=== PATIENT | male | born 1975 | race Native Hawaiian/Other Pacific Islander ===

== ENCOUNTER 2016-12-26 23:07 | Observation (INO) | payer SELFPAY ==
[2016-12-26] MEDS ORDERED: Sodium Chloride 0.9% 1,000 ML IV ONE (23:41)
[2016-12-26] MEDS ORDERED: Sodium Chloride 0.9% 1,000 ML ONE (23:55)
[2016-12-26 23:59] LABS: BASO # 0.1 K/uL (0.0-0.2); BASO % 0.7 % (0.0-2.0); EOS # 0.3 K/uL (0.0-0.7); EOS % 1.9 % (0.0-4.0); HEMATOCRIT 50.2 % (35.0-51.0); LYMPH # 2.3 K/uL (1.0-4.3); LYMPH % 14.2 % (20.0-40.0); MEAN CELL VOLUME 86.9 fL (80.0-94.0); MEAN CORPUSCULAR HEMOGLOBIN 29.2 pg (27.0-31.0); MEAN CORPUSCULAR HGB CONC 33.6 g/dL (33.0-37.0); MEAN PLATELET VOLUME 9.6 fL (7.2-11.7); MONO # 1.1 K/uL (0.0-0.8); MONO % 6.8 % (0.0-10.0); WHITE BLOOD COUNT 15.9 K/uL (4.8-10.8)
[2016-12-27 00:04] LABS: RBC URINE 1 /hpf (0-3); URINE BILIRUBIN NEGATIVE (NEGATIVE); URINE BLOOD NEGATIVE (NEGATIVE); URINE COLOR Yellow (YELLOW); URINE GLUCOSE (UA) 3+ mg/dL (Normal); URINE KETONE TRACE mg/dL (NEGATIVE); URINE LEUKOCYTE ESTERASE NEG Leu/uL (Negative); URINE PROTEIN NEGATIVE (NEGATIVE); URINE UROBILINOGEN NORMAL mg/dL (0.2-1.0); WBC URINE < 1 /hpf (0-5)
[2016-12-27 00:08] LABS: INR 1.1
[2016-12-27 00:09] LABS: CHLORIDE 98 mmol/L (98-107); SODIUM 136 mmol/L (132-148)
[2016-12-27 00:10] LABS: POTASSIUM 3.7 mmol/L (3.6-5.2)
[2016-12-27 00:12] LABS: ALB/GLOB RATIO 1.5 (1.0-2.1); ALKALINE PHOSPHATASE 90 U/L (38-126); AST/SGOT 15 U/L (17-59); BILIRUBIN,TOTAL 1.2 mg/dL (0.2-1.3); BLOOD UREA NITROGEN 12 mg/dL (9-20); CARBON DIOXIDE 26 mmol/L (22-30); GFR AFRICAN-AMERICAN > 60; TOTAL PROTEIN 7.4 g/dL (6.3-8.3)
[2016-12-27 00:13] LABS: ALT/SGPT 41 U/L (21-72); CALCIUM 9.3 mg/dl (8.6-10.4); GLUCOSE,RANDOM 178 mg/dL (75-110)
--- NOTE | 2016-12-27 00:13 | C.PDOC ---
Time Seen by Provider: 12/26/16 23:27 Chief Complaint (Nursing): Abdominal Pain History Per: Patient Onset/Duration Of Symptoms: Hrs (since this morning) Current Symptoms Are (Timing): Still Present Location Of Pain/Discomfort: Diffuse, RLQ Quality Of Discomfort: "Pain" Associated Symptoms: Nausea, Vomiting Alleviating Factors: None Last Bowel Movement: Today Additional History Per: Prior Records Past Medical History Reviewed: Historical Data, Nursing Documentation, Vital Signs Vital Signs: Last Vital Signs Temp 98.6 F 12/26/16 23:13 Pulse 66 12/26/16 23:13 Resp 16 12/26/16 23:13 BP 127/75 12/26/16 23:13 Pulse Ox 98 12/27/16 00:13 - Medical History PMH: Diabetes Surgical History: No Surg Hx Family History: States: Unknown Family Hx - Social History Hx Alcohol Use: Yes Hx Substance Use: No - Immunization History Hx Tetanus Toxoid Vaccination: No Hx Influenza Vaccination: No Hx Pneumococcal Vaccination: No Review Of Systems Except As Marked, All Systems Reviewed And Found Negative. Constitutional: Negative for: Weakness Cardiovascular: Negative for: Chest Pain Respiratory: Negative for: Shortness of Breath Gastrointestinal: Positive for: Nausea, Vomiting, Abdominal Pain. Negative for : Hematemesis Genitourinary: Negative for: Dysuria, Scrotal Pain Musculoskeletal: Negative for: Neck Pain, Back Pain Skin: Negative for: Rash Neurological: Negative for: Weakness, Numbness Physical Exam - Physical Exam Appears: Other (Uncomfortable) Skin: Normal Color, Warm, Dry, No Rash Head: Atraumatic, Normacephalic Eye(s): bilateral: PERRL, EOMI Neck: Normal ROM, Supple Cardiovascular: Rhythm Regular Respiratory: Normal Breath Sounds, No Accessory Muscle Use Gastrointestinal/Abdominal: Tenderness (RLQ) Back: No CVA Tenderness Extremity: Normal ROM Neurological/Psych: Oriented x3, Normal Motor, Normal Sensation ED Course And Treatment - Laboratory Results Result Diagrams: 12/26/16 23:56 12/26/16 23:56 Lab Interpretation: Abnormal Interpretation Of Abnormal: Leukocytosis O2 Sat by Pulse Oximetry: 98 Pulse Ox Interpretation: Normal Disposition - Disposition Disposition Time: 00:48 Condition: FAIR - Clinical Impression Clinical Impression: Abdominal pain Physician Patient Turnover Patient Signed Over To: Charles Reis Handoff Comments: to f/up CT scan of abd/pelv.
[2016-12-27] MEDS ORDERED: Iohexol 350mg/ml 100 ML ONE (00:26)
[2016-12-27] MEDS ORDERED: Piperacillin/Tazobact 3.375 gm 100 ML IVPB STA (00:58)
[2016-12-27] MEDS ORDERED: Piperacillin/Tazobact 3.375 gm 100 ML IVPB ONE (01:25)
--- NOTE | 2016-12-27 01:46 | CT ---
EXAM: CT Abdomen and Pelvis With Intravenous Contrast CLINICAL HISTORY: 41 years old, male; Pain; Abdominal pain; Additional info: Abd pain, R/O appendicitis TECHNIQUE: Axial computed tomography images of the abdomen and pelvis with intravenous contrast. All CT scans at this facility use one or more dose reduction techniques, viz.: automated exposure control; ma/kV adjustment per patient size (including targeted exams where dose is matched to indication; i.e. head); or iterative reconstruction technique. Coronal and sagittal reformatted images were created and reviewed. CONTRAST: 100 mL of [id number] administered intravenously. COMPARISON: No relevant prior studies available. FINDINGS: Lower thorax: Minimal atelectasis. ABDOMEN: Liver: Probable mild fatty infiltration. Gallbladder and bile ducts: No calcified stones. No ductal dilation. Pancreas: No ductal dilation. No mass. Spleen: No splenomegaly. Adrenals: No mass. Kidneys and ureters: No mass. No hydronephrosis. Stomach and bowel: No definite mural thickening. No obstruction. Appendix: Enlarged appendix, measuring up to 1.2 cm in diameter. Mild stranding about appendix. Appendicolith. PELVIS: Bladder: Unremarkable. Reproductive: Unremarkable as visualized. ABDOMEN and PELVIS: Intraperitoneal space: No significant fluid collection. No free air. Bones/joints: Degenerative changes of lower lumbar spine. No acute fracture. Soft tissues: Mild gynecomastia. Vasculature: Unremarkable. No aneurysm. Lymph nodes: No pathologically enlarged lymph nodes. IMPRESSION: 1. Acute appendicitis. 2. Incidental/non-acute findings are described above.
[2016-12-27] MEDS: Sodium Chloride 0.9% 1,000 ML IV SCH ×3 (02:40→22:12)
--- NOTE | 2016-12-27 02:52 | CP.PCM.HP ---
History of Present Illness - History of Present Illness History of Present Illness: Surgery 41M with PMH of DM came with RLQ pain started yesterday. Pain is localized, doesn't radiate. Sudden onset of pain. Report N/V multiple times. Non bilious, non bloody. Denies hematochezia/hematemesis/hematuria/dysuria/F/C/D/CP/SOB. WBC 17k. CT shows acute appendicitis with appendicholith. Pt consented for surgery. PMH: DM on Metformin PSH: None Med: Metformin SS: Lives with family Present on Admission - Present on Admission Any Indicators Present on Admission: No Review of Systems - Review of Systems Review of Systems: see HPI Past Patient History - Infectious Disease Hx of Infectious Diseases: None - Past Social History Smoking Status: Never Smoked - CARDIAC Hx Cardiac Disorders: No - PULMONARY Hx Respiratory Disorders: No - NEUROLOGICAL Hx Neurological Disorder: No - HEENT Hx HEENT Problems: No - RENAL Hx Chronic Kidney Disease: No - ENDOCRINE/METABOLIC Hx Endocrine Disorders: Yes Hx Diabetes Mellitus Type 2: Yes - HEMATOLOGICAL/ONCOLOGICAL Hx Blood Disorders: No - INTEGUMENTARY Hx Dermatological Problems: No - MUSCULOSKELETAL/RHEUMATOLOGICAL Hx Musculoskeletal Disorders: No - GASTROINTESTINAL Hx Gastrointestinal Disorders: Yes Hx Gastroesophageal Reflux: Yes - GENITOURINARY/GYNECOLOGICAL Hx Genitourinary Disorders: No - PSYCHIATRIC Hx Substance Use: No - SURGICAL HISTORY Hx Surgeries: No - ANESTHESIA Hx Anesthesia: No Meds Allergies/Adverse Reactions: Allergies Allergy/AdvReac Type Severity Reaction Status Date / Time No Known Allergies Allergy Verified 12/26/16 23:16 Physical Exam - Constitutional Appears: Non-toxic - Head Exam Head Exam: ATRAUMATIC, NORMAL INSPECTION, NORMOCEPHALIC - Eye Exam Eye Exam: EOMI, Normal appearance, PERRL Pupil Exam: NORMAL ACCOMODATION, PERRL - ENT Exam ENT Exam: Mucous Membranes Moist, Normal Exam - Neck Exam Neck exam: Positive for: Normal Inspection - Respiratory Exam Respiratory Exam: Clear to Auscultation Bilateral, NORMAL BREATHING PATTERN - Cardiovascular Exam Cardiovascular Exam: REGULAR RHYTHM - GI/Abdominal Exam GI & Abdominal Exam: Guarding, Rebound, Soft, Tenderness. absent: Distended, Firm, Hernia, Mass, Organomegaly, Pulsatile Mass Additional comments: RLQ TTP - Extremities Exam Extremities exam: Positive for: full ROM, normal inspection - Back Exam Back exam: NORMAL INSPECTION - Neurological Exam Neurological exam: Alert, CN II-XII Intact, Normal Gait, Oriented x3, Reflexes Normal - Psychiatric Exam Psychiatric exam: Normal Affect, Normal Mood - Skin Skin Exam: Dry, Intact, Normal Color, Warm Results - Vital Signs Recent Vital Signs: Last Vital Signs Temp 98.3 F 12/27/16 02:43 Pulse 76 12/27/16 02:43 Resp 20 12/27/16 02:43 BP 107/60 12/27/16 02:43 Pulse Ox 96 12/27/16 02:43 - Labs Result Diagrams: 12/26/16 23:56 12/26/16 23:56 Labs: Laboratory Results - last 24 hr 12/26/16 12/26/16 12/26/16 23:56 23:56 23:56 WBC 15.9 H RBC 5.77 Hgb 16.8 Hct 50.2 MCV 86.9 MCH 29.2 MCHC 33.6 RDW 13.0 Plt Count 268 MPV 9.6 Neut % (Auto) 76.4 H Lymph % (Auto) 14.2 L [place] % (Auto) 6.8 Eos % (Auto) 1.9 Baso % (Auto) 0.7 Neut # 12.2 H Lymph # 2.3 [place] # 1.1 H Eos # 0.3 Baso # 0.1 PT 12.1 INR 1.1 APTT 33 Sodium Potassium Chloride Carbon Dioxide Anion Gap BUN Creatinine Est GFR ( Amer) Est GFR (Non-Af Amer) Random Glucose Calcium Total Bilirubin AST ALT Alkaline Phosphatase Total Protein Albumin Globulin Albumin/Globulin Ratio Lipase Urine Color Yellow Urine Clarity Clear Urine pH 5.0 Ur Specific [place] 1.022 Urine Protein Negative Urine Glucose (UA) 3+ H Urine Ketones Trace Urine Blood Negative Urine Nitrate Negative Urine Bilirubin Negative Urine Urobilinogen Normal Ur Leukocyte Esterase Neg Urine WBC (Auto) < 1 Urine RBC (Auto) 1 Ur Squamous Epith Cells < 1 12/26/16 23:56 WBC RBC Hgb Hct MCV MCH MCHC RDW Plt Count MPV Neut % (Auto) Lymph % (Auto) [place] % (Auto) Eos % (Auto) Baso % (Auto) Neut # Lymph # [place] # Eos # Baso # PT INR APTT Sodium 136 Potassium 3.7 Chloride 98 Carbon Dioxide 26 Anion Gap 16 BUN 12 Creatinine 0.7 L Est GFR ( Amer) > 60 Est GFR (Non-Af Amer) > 60 Random Glucose 178 H Calcium 9.3 Total Bilirubin 1.2 AST 15 L ALT 41 Alkaline Phosphatase 90 Total Protein 7.4 Albumin 4.4 Globulin 3.0 Albumin/Globulin Ratio 1.5 Lipase 49 Urine Color Urine Clarity Urine pH Ur Specific [place] Urine Protein Urine Glucose (UA) Urine Ketones Urine Blood Urine Nitrate Urine Bilirubin Urine Urobilinogen Ur Leukocyte Esterase Urine WBC (Auto) Urine RBC (Auto) Ur Squamous Epith Cells Assessment & Plan - Assessment and Plan (Free Text) Assessment: Acute appendicitis CT acute appendicitis with stone WBC 17k Afebrile -OR at 11AM for lap appy -NPO -IVF -ABX -PTX -SCD DW Dr. Howell
[2016-12-27] MEDS: HYDROmorphone 0.5 mg/0.5 ml ISec IVP PRN ×6 (05:30→13:23)
[2016-12-27] MEDS ORDERED: HYDROmorphone 0.5 mg/0.5 ml ISec IVP STA (07:04)
[2016-12-27] MEDS: Piperacillin/Tazobact 3.375 GM in Sodium Chloride 100 ML IVPB SCH ×3 (09:18→23:44)
[2016-12-27] MEDS ORDERED: Propofol 10 mg/ml Inj (20 ML) ONE (10:59)
[2016-12-27] MEDS ORDERED: Midazolam 2 MG/2 ML VIAL ONE (10:59)
[2016-12-27] MEDS ORDERED: Bupivacaine 0.5%/Epi 1:200,000 (10 ML SOL) ONE (11:01)
[2016-12-27] MEDS ORDERED: Lactated Ringer's 1,000 ML IV ONE (11:02)
[2016-12-27] MEDS ORDERED: ePHEDrine 50 mg/ml Inj ONE (11:22)
[2016-12-27] MEDS ORDERED: Phenylephrine 10 mg/ml Inj ONE (11:22)
--- NOTE | 2016-12-27 12:10 | PCM.SURG1 ---
Surgeon's Initial Post Op Note - Surgeon's Notes Surgeon: Dr. Howell Repossession Agent: Dr. Demarco PGY-2, Jackie Ramirez OMS III Pre-Operative Diagnosis: Appendicitis, acute Operative Findings: Acute appendicitis Post-Operative Diagnosis: Acute appendicitis Operation Performed: laparoscopic appendectomy Specimen/Specimens Removed: appendix Estimated Blood Loss: EBL {In ML}: 5 Date of Surgery/Procedure: 12/27/16 Time of Surgery/Procedure: 11:00
[2016-12-27] MEDS: Oxycodone/Acetaminophen 5/325 mg Tab PO PRN ×2 (14:17→23:42)
[2016-12-27 14:24] VITALS: RESP 20
--- NOTE | 2016-12-27 22:59 | OP ---
PROCEDURE DATE: 12/27/2016 PREOPERATIVE DIAGNOSIS: Acute appendicitis. POSTOPERATIVE DIAGNOSIS: Acute appendicitis. PROCEDURE PERFORMED: Laparoscopic appendectomy. SURGEON: Dr. Howell. ADMINISTRATIVE FELLOW: Bob. FINDINGS: The appendix was retrocecal; it was markedly inflamed, swollen, but no gross perforation was noted. Some fibrinous purulent exudate located around the area and a small amount of murky greenish fluid in the right gutter. No other pathology noted. PROCEDURE IN DETAIL: Under general anesthesia, the patient was prepared and draped in the sterile fashion. A 12-mm trocar was inserted in the umbilicus after inflating the abdomen with CO2 to 15 mmHg pressure. A laparoscope was inserted; then, under direct vision, a 5-mm suprapubic port and a 5-mm left lower quadrant ports were inserted. The patient was put in Trendelenburg position, turned over towards the left side. The appendix was buried in adhesions. The adhesions were taken down. The appendix was then grasped with a grasper. Traction was applied. It was mobilized. The base was identified. It was transected with the Endo DOLORES with blue valeriy and then mesoappendix was also treated in a similar with the white valeriy. Area was irrigated with copious amount of saline solution. The appendix initially was placed in the EndoCatch, then was extracted through the umbilical port. Area was further irrigated. Irrigating fluid was suctioned out. CO2 allowed to escape from the peritoneal cavity. Trocars removed, the wounds closed in a routine fashion. The estimated blood loss was about 5 mL. No complications. Quintin Howell MD
--- NOTE | 2016-12-28 03:34 | CP.PCM.PN ---
Subjective - Date & Time of Evaluation Date of Evaluation: 12/28/16 Time of Evaluation: 06:10 - Subjective Subjective: Patient seen and examined at bedside. Patient reports pain not fully controlled with pain medication, denies nausea, vomiting, fevers, chills. Is tolerating carb controlled diet and urinating well. Objective - Vital Signs/Intake and Output Vital Signs (last 24 hours): Temp Pulse Resp BP Pulse Ox 98.9 F 104 H 20 129/73 98 12/27/16 23:34 12/27/16 23:34 12/27/16 23:34 12/27/16 23:34 12/27/16 23:34 - Medications Medications: Current Medications Acetaminophen (Tylenol 325mg Tab) 975 mg PO Q6 PRN PRN Reason: Fever >100.4 F Heparin Sodium (Porcine) (Heparin) 5,000 units SC Q12 [facility] Hydromorphone HCl (Dilaudid) 0.5 mg IVP Q4H PRN PRN Reason: Pain, severe (8-10) Last Admin: 12/27/16 16:40 Dose: 0.5 mg Piperacillin Sod/Tazobactam (Sod 3.375 gm/ Sodium Chloride) 100 mls @ 200 mls/ hr IVPB Q8H [facility] Last Admin: 12/27/16 23:44 Dose: 200 mls/hr Sodium Chloride (Sodium Chloride 0.9%) 1,000 mls @ 100 mls/hr IV .Q10H [facility] Stop: 12/30/16 02:16 Last Admin: 12/27/16 22:12 Dose: 100 mls/hr Metformin HCl (Glucophage Xr) 750 mg PO DAILY [facility] Ondansetron HCl (Zofran Inj) 4 mg IVP Q4 PRN PRN Reason: Nausea/Vomiting Last Admin: 12/27/16 16:30 Dose: 4 mg Oxycodone/Acetaminophen (Percocet 5/325 Mg Tab) 1 tab PO Q6H PRN PRN Reason: Pain, moderate (4-7) Stop: 12/30/16 12:28 Last Admin: 12/27/16 23:42 Dose: 1 tab Pantoprazole Sodium (Protonix Inj) 40 mg IVP DAILY [facility] Pneumococcal Polyvalent Vaccine (Pneumovax 23 Vaccine) 0.5 ml IM .ONCE ONE Stop: 12/30/16 10:01 - Labs Labs: PT 12.1 SECONDS (9.7-12.2) 12/26/16 23:56 INR 1.1 12/26/16 23:56 APTT 33 SECONDS (21-34) 12/26/16 23:56 - Constitutional Appears: Non-toxic, No Acute Distress - Head Exam Head Exam: ATRAUMATIC, NORMOCEPHALIC - Eye Exam Eye Exam: Normal appearance. absent: Conjunctival injection, Scleral icterus - ENT Exam ENT Exam: Mucous Membranes Moist, Normal Oropharynx - Respiratory Exam Respiratory Exam: NORMAL BREATHING PATTERN. absent: Accessory Muscle Use, Respiratory Distress - Cardiovascular Exam Cardiovascular Exam: RRR - GI/Abdominal Exam GI & Abdominal Exam: Distended (moderately distended), Soft, Tenderness ( moderate diffuse tenderness with severe tenderness in the LLQ). absent: Rigid, Rebound Additional comments: tympanic to percussion. Abdominal dressings c/d/i - Extremities Exam Extremities Exam: absent: Calf Tenderness, Pedal Edema, Tenderness - Neurological Exam Neurological Exam: Alert, Awake, Oriented x3 - Psychiatric Exam Psychiatric exam: Anxious, Normal Affect - Skin Skin Exam: Dry, Normal Color, Warm Assessment and Plan - Assessment and Plan (Free Text) Assessment: 41M with PMH of DM POD#1 s/p lap appendectomy for acute appendcitis Afebrile overnight, mild tachycardia and hypotension WBC 12.3 down from 16 yesterday Plan: -Continue to trend CBC -Continue CCD -Continue IV abx and IVF -Serial abdominal exams -continue PO metformin and accuchecks -Strict I&O's, monitor vitals -Incentive spirometer, OOB Discussed with Dr. Dante Demarco, PGY2
[2016-12-28] MEDS: Piperacillin/Tazobact 3.375 GM in Sodium Chloride 100 ML IVPB SCH ×2 (08:23→16:00)
[2016-12-28] MEDS: Sodium Chloride 0.9% 1,000 ML IV SCH ×2 (08:30→21:00)
[2016-12-28 08:52] LABS: BASO % 0.2 % (0.0-2.0); EOS # 0.1 K/uL (0.0-0.7); EOS % 0.6 % (0.0-4.0); HEMATOCRIT 37.4 % (35.0-51.0); LYMPH # 1.9 K/uL (1.0-4.3); LYMPH % 15.3 % (20.0-40.0); MEAN CELL VOLUME 88.3 fL (80.0-94.0); MEAN CORPUSCULAR HEMOGLOBIN 29.5 pg (27.0-31.0); MEAN CORPUSCULAR HGB CONC 33.4 g/dL (33.0-37.0); MEAN PLATELET VOLUME 9.8 fL (7.2-11.7); MONO # 1.4 K/uL (0.0-0.8); MONO % 11.6 % (0.0-10.0); RED CELL DISTRIBUTION WIDTH 12.9 % (11.5-14.5); WHITE BLOOD COUNT 12.3 K/uL (4.8-10.8)
[2016-12-28 09:09] LABS: CHLORIDE 100 mmol/L (98-107)
[2016-12-28 09:10] LABS: POTASSIUM 3.7 mmol/L (3.6-5.2); SODIUM 136 mmol/L (132-148)
[2016-12-28 09:12] LABS: GFR AFRICAN-AMERICAN > 60
[2016-12-28 09:13] LABS: BLOOD UREA NITROGEN 5 mg/dL (9-20); CALCIUM 8.4 mg/dl (8.6-10.4); CARBON DIOXIDE 26 mmol/L (22-30); GLUCOSE,RANDOM 143 mg/dL (75-110)
[2016-12-28] MEDS ORDERED: Oxycodone/Acetaminophen 5/325 mg Tab PO PRN (09:15)
[2016-12-28] MEDS ORDERED: HYDROmorphone 0.5 mg/0.5 ml ISec IVP PRN (09:30)
--- NOTE | 2016-12-28 13:25 | CP.PCM.PN ---
Subjective - Date & Time of Evaluation Date of Evaluation: 12/28/16 Time of Evaluation: 13:24 - Subjective Subjective: markedly distended and tympanitic. suspect ileus. will start reglan iv q6h Objective - Vital Signs/Intake and Output Vital Signs (last 24 hours): Temp Pulse Resp BP Pulse Ox 98.9 F 104 H 20 129/73 98 12/27/16 23:34 12/27/16 23:34 12/27/16 23:34 12/27/16 23:34 12/27/16 23:34 Intake and Output: 12/28/16 12/28/16 06:59 18:59 Intake Total 1040 Output Total 800 Balance 240 - Medications Medications: Current Medications Acetaminophen (Tylenol 325mg Tab) 975 mg PO Q6 PRN PRN Reason: Fever >100.4 F Heparin Sodium (Porcine) (Heparin) 5,000 units SC Q12 [facility] Last Admin: 12/28/16 10:33 Dose: Not Given Hydromorphone HCl (Dilaudid) 0.5 mg IVP Q4H PRN PRN Reason: Pain, severe (8-10) Piperacillin Sod/Tazobactam (Sod 3.375 gm/ Sodium Chloride) 100 mls @ 200 mls/ hr IVPB Q8H [facility] Last Admin: 12/28/16 08:23 Dose: 200 mls/hr Sodium Chloride (Sodium Chloride 0.9%) 1,000 mls @ 100 mls/hr IV .Q10H [facility] Stop: 12/30/16 02:16 Last Admin: 12/27/16 22:12 Dose: 100 mls/hr Metformin HCl (Glucophage Xr) 750 mg PO DAILY [facility] Last Admin: 12/28/16 10:30 Dose: 750 mg Metoclopramide HCl (Reglan) 10 mg IM ACHS [facility] Stop: 12/30/16 11:31 Ondansetron HCl (Zofran Inj) 4 mg IVP Q4 PRN PRN Reason: Nausea/Vomiting Last Admin: 12/27/16 16:30 Dose: 4 mg Oxycodone/Acetaminophen (Percocet 5/325 Mg Tab) 2 tab PO Q6H PRN PRN Reason: Pain, moderate (4-7) Stop: 12/30/16 12:28 Pantoprazole Sodium (Protonix Inj) 40 mg IVP DAILY [facility] Pneumococcal Polyvalent Vaccine (Pneumovax 23 Vaccine) 0.5 ml IM .ONCE ONE Stop: 12/30/16 10:01 - Labs Labs: 12/28/16 08:36 12/28/16 08:36 PT 12.1 SECONDS (9.7-12.2) 12/26/16 23:56 INR 1.1 12/26/16 23:56 APTT 33 SECONDS (21-34) 12/26/16 23:56
[2016-12-29] MEDS: Piperacillin/Tazobact 3.375 GM in Sodium Chloride 100 ML IVPB SCH ×2 (00:04→08:28)
[2016-12-29] MEDS: Sodium Chloride 0.9% 1,000 ML IV SCH (04:24)
--- NOTE | 2016-12-29 07:31 | CP.PCM.PN ---
Subjective - Date & Time of Evaluation Date of Evaluation: 12/29/16 Time of Evaluation: 07:30 - Subjective Subjective: Patient was seen and evaluated at bedside in no acute distress. Patient reports still having lower abdominal pain. He reports the pain is improving. He also states he has a fever. Patient reports he is walking around, tolerating his diet , and has started to use the incentive spirometer. 12 point review of systems otherwise negative. Objective - Vital Signs/Intake and Output Vital Signs (last 24 hours): Temp Pulse Resp BP Pulse Ox 98.5 F 90 20 118/72 95 12/29/16 05:12 12/29/16 02:00 12/29/16 02:00 12/29/16 00:50 12/29/16 02:00 Intake and Output: 12/29/16 12/29/16 06:59 18:59 Intake Total 880 Output Total 600 Balance 280 - Medications Medications: Current Medications Acetaminophen (Tylenol 325mg Tab) 975 mg PO Q6 PRN PRN Reason: Fever >100.4 F Last Admin: 12/29/16 01:09 Dose: 975 mg Heparin Sodium (Porcine) (Heparin) 5,000 units SC Q12 [facility] Last Admin: 12/28/16 21:40 Dose: 5,000 units Hydromorphone HCl (Dilaudid) 0.5 mg IVP Q4H PRN PRN Reason: Pain, severe (8-10) Piperacillin Sod/Tazobactam (Sod 3.375 gm/ Sodium Chloride) 100 mls @ 200 mls/ hr IVPB Q8H [facility] Last Admin: 12/29/16 00:04 Dose: 200 mls/hr Sodium Chloride (Sodium Chloride 0.9%) 1,000 mls @ 100 mls/hr IV .Q10H [facility] Stop: 12/30/16 02:16 Last Admin: 12/29/16 04:24 Dose: Not Given Ketorolac Tromethamine (Toradol) 30 mg IVP Q6 [facility] Metformin HCl (Glucophage Xr) 750 mg PO DAILY [facility] Last Admin: 12/28/16 10:30 Dose: 750 mg Metoclopramide HCl (Reglan) 10 mg IVP Q6H [facility] Stop: 12/30/16 10:31 Last Admin: 12/29/16 06:31 Dose: Not Given Ondansetron HCl (Zofran Inj) 4 mg IVP Q4 PRN PRN Reason: Nausea/Vomiting Last Admin: 12/27/16 16:30 Dose: 4 mg Oxycodone/Acetaminophen (Percocet 5/325 Mg Tab) 2 tab PO Q6H PRN PRN Reason: Pain, moderate (4-7) Stop: 12/30/16 12:28 Last Admin: 12/28/16 15:09 Dose: 2 tab Pantoprazole Sodium (Protonix Inj) 40 mg IVP DAILY [facility] Last Admin: 12/28/16 10:33 Dose: 40 mg Pneumococcal Polyvalent Vaccine (Pneumovax 23 Vaccine) 0.5 ml IM .ONCE ONE Stop: 12/30/16 10:01 - Labs Labs: 12/28/16 08:36 12/28/16 08:36 PT 12.1 SECONDS (9.7-12.2) 12/26/16 23:56 INR 1.1 12/26/16 23:56 APTT 33 SECONDS (21-34) 12/26/16 23:56 - Head Exam Head Exam: ATRAUMATIC, NORMAL INSPECTION - Eye Exam Eye Exam: EOMI, Normal appearance - ENT Exam ENT Exam: Mucous Membranes Moist - Respiratory Exam Respiratory Exam: Clear to Ausculation Bilateral, NORMAL BREATHING PATTERN. absent: Rhonchi, Wheezes, Respiratory Distress - Cardiovascular Exam Cardiovascular Exam: REGULAR RHYTHM, +S1, +S2 - GI/Abdominal Exam GI & Abdominal Exam: Soft, Tenderness (RLQ, LLQ), Normal Bowel Sounds - Extremities Exam Extremities Exam: Normal Inspection. absent: Pedal Edema, Tenderness - Neurological Exam Neurological Exam: Alert, Awake, Oriented x3 - Psychiatric Exam Psychiatric exam: Normal Affect, Normal Mood - Skin Skin Exam: Dry, Intact, Normal Color, Warm Assessment and Plan - Assessment and Plan (Free Text) Assessment: 41 year old male s/p lap appendectomy, POD# 2. - Follow up morning labs. - Appendix culture: gram negative rods. - Continue CCD, IV antibiotics and IV Fluids. - Continue incentive spirometer and OOB.
[2016-12-29 09:17] LABS: BASO # 0.1 K/uL (0.0-0.2); BASO % 0.5 % (0.0-2.0); EOS # 0.2 K/uL (0.0-0.7); EOS % 1.9 % (0.0-4.0); LYMPH # 2.6 K/uL (1.0-4.3); LYMPH % 25.9 % (20.0-40.0); MEAN CORPUSCULAR HEMOGLOBIN 29.8 pg (27.0-31.0); MEAN CORPUSCULAR HGB CONC 33.8 g/dL (33.0-37.0); MEAN PLATELET VOLUME 9.5 fL (7.2-11.7); MONO # 1.2 K/uL (0.0-0.8); MONO % 12.4 % (0.0-10.0); RED CELL DISTRIBUTION WIDTH 12.8 % (11.5-14.5)
[2016-12-29 09:37] LABS: BLOOD UREA NITROGEN 9 mg/dL (9-20); CALCIUM 8.8 mg/dl (8.6-10.4); CARBON DIOXIDE 24 mmol/L (22-30); CHLORIDE 100 mmol/L (98-107); GFR AFRICAN-AMERICAN > 60; GLUCOSE,RANDOM 114 mg/dL (75-110); POTASSIUM 3.6 mmol/L (3.6-5.2); SODIUM 137 mmol/L (132-148)
--- NOTE | 2016-12-29 15:44 | CP.PCM.DIS ---
Provider - Provider Date of Admission: 12/27/16 02:23 Attending physician: Quintin Howell MD Time Spent in preparation of Discharge (in minutes): 10 Hospital Course - Lab Results Lab Results: Micro Results 12/27/16 12:19 Body Fluid - Appendix Gram Stain - Final 12/27/16 12:19 Body Fluid - Appendix Body Fluid Culture - Preliminary Escherichia Coli Gram Negative Andi Most Recent Lab Values WBC 10.0 K/uL (4.8-10.8) 12/29/16 09:01 RBC 4.20 Mil/uL (4.40-5.90) L 12/29/16 09:01 Hgb 12.5 g/dL (12.0-18.0) 12/29/16 09:01 Hct 37.0 % (35.0-51.0) 12/29/16 09:01 MCV 88.0 fL (80.0-94.0) 12/29/16 09:01 MCH 29.8 pg (27.0-31.0) 12/29/16 09:01 MCHC 33.8 g/dL (33.0-37.0) 12/29/16 09:01 RDW 12.8 % (11.5-14.5) 12/29/16 09:01 Plt Count 208 K/uL (130-400) 12/29/16 09:01 MPV 9.5 fL (7.2-11.7) 12/29/16 09:01 Neut % (Auto) 59.3 % (50.0-75.0) 12/29/16 09:01 Lymph % (Auto) 25.9 % (20.0-40.0) 12/29/16 09:01 [place] % (Auto) 12.4 % (0.0-10.0) H 12/29/16 09:01 Eos % (Auto) 1.9 % (0.0-4.0) 12/29/16 09:01 Baso % (Auto) 0.5 % (0.0-2.0) 12/29/16 09:01 Neut # 5.9 K/uL (1.8-7.0) 12/29/16 09:01 Lymph # 2.6 K/uL (1.0-4.3) 12/29/16 09:01 [place] # 1.2 K/uL (0.0-0.8) H 12/29/16 09:01 Eos # 0.2 K/uL (0.0-0.7) 12/29/16 09:01 Baso # 0.1 K/uL (0.0-0.2) 12/29/16 09:01 PT 12.1 SECONDS (9.7-12.2) 12/26/16 23:56 INR 1.1 12/26/16 23:56 APTT 33 SECONDS (21-34) 12/26/16 23:56 Sodium 137 mmol/L (132-148) 12/29/16 09:01 Potassium 3.6 mmol/L (3.6-5.2) 12/29/16 09:01 Chloride 100 mmol/L (98-107) 12/29/16 09:01 Carbon Dioxide 24 mmol/L (22-30) 12/29/16 09:01 Anion Gap 17 (10-20) 12/29/16 09:01 BUN 9 mg/dL (9-20) 12/29/16 09:01 Creatinine 0.6 MG/DL (0.8-1.5) L 12/29/16 09:01 Est GFR ( Amer) > 60 12/29/16 09:01 Est GFR (Non-Af Amer) > 60 12/29/16 09:01 POC Glucose (mg/dL) 152 mg/dL (65-110) H 12/29/16 11:11 Random Glucose 114 mg/dL (75-110) H 12/29/16 09:01 Calcium 8.8 mg/dl (8.6-10.4) 12/29/16 09:01 Total Bilirubin 1.2 mg/dL (0.2-1.3) 12/26/16 23:56 AST 15 U/L (17-59) L 12/26/16 23:56 ALT 41 U/L (21-72) 12/26/16 23:56 Alkaline Phosphatase 90 U/L (38-126) 12/26/16 23:56 Total Protein 7.4 g/dL (6.3-8.3) 12/26/16 23:56 Albumin 4.4 g/dL (3.5-5.0) 12/26/16 23:56 Globulin 3.0 gm/dL (2.2-3.9) 17 23:56 Albumin/Globulin Ratio 1.5 (1.0-2.1) 17 23:56 Lipase 49 U/L (23-300) 1517 23:56 Urine Color Yellow (YELLOW) 1517 23:56 Urine Clarity Clear (Clear) 12/26/16 23:56 Urine pH 5.0 (5.0-8.0) 15 23:56 Ur Specific [place] 1.022 (1.003-1.030) 15 23:56 Urine Protein Negative mg/dL (NEGATIVE) 12/26/16 23:56 Urine Glucose (UA) 3+ mg/dL (Normal) H 12/26/16 23:56 Urine Ketones Trace mg/dL (NEGATIVE) 1517 23:56 Urine Blood Negative (NEGATIVE) 15/ 23:56 Urine Nitrate Negative (NEGATIVE) 12/26/16 23:56 Urine Bilirubin Negative (NEGATIVE) 12/26/16 23:56 Urine Urobilinogen Normal mg/dL (0.2-1.0) 12/26/16 23:56 Ur Leukocyte Esterase Neg [place]/uL (Negative) 12/26/16 23:56 Urine WBC (Auto) < 1 /hpf (0-5) 12/26/16 23:56 Urine RBC (Auto) 1 /hpf (0-3) 15 23:56 Ur Squamous Epith Cells < 1 /hpf (0-5) 12/26/16 23:56 - Hospital Course Hospital Course: 41 yo m admitted to the hospital 9/16 with RLQ pain and found to have acute appendicitis. Pt was taken to the OR that day for laparscopic appendectomy. He tolerated the surgery well. Pt did have a fever on POD #1 which came down with tylenol. HE was instructed to use his incentive spirometer and ambulate. He was passing flatus, pain well controlled with PO meds, and tolerating regular diet. On POD #2 pt was clear for discharge home and instructed to f/u with DR. Howell in office in 1 week. Discharge Exam - Head Exam Head Exam: ATRAUMATIC, NORMAL INSPECTION - Eye Exam Eye Exam: Normal appearance - Respiratory Exam Respiratory Exam: NORMAL BREATHING PATTERN. absent: Respiratory Distress - GI/Abdominal Exam GI & Abdominal Exam: Distended, Soft. absent: Firm, Guarding, Rebound, Rigid, Tenderness Additional comments: incisions C/D/I with dermabond - Neurological Exam Neurological exam: Alert, Oriented x3 - Psychiatric Exam Psychiatric exam: Normal Affect, Normal Mood - Skin Skin Exam: Dry, Intact Discharge Plan - Discharge Medications Prescriptions: oxyCODONE/Acetaminophen [Percocet 5/325 mg Tab] 1 tab PO Q6H PRN #10 tab PRN Reason: Pain, Moderate (4-7) - Follow Up Plan Condition: FAIR Disposition: HOME/ ROUTINE Referrals: Quintin Howell MD [Staff Provider] -
[2016-12-29 16:18] VITALS: BP 128/88; PULSE 89; TEMP 100.9; O2SAT 97
[2016-12-30] MEDS ORDERED: Pneumococcal 23-Valent Vaccine IM ONE (10:00)
--- NOTE | 2016-12-30 22:45 | CARD ---
APPROVED REPORT EKG Measurement Heart [id number] <Conclusion> Normal sinus rhythm Normal ECG
== END 2016-12-29 18:30 | disposition home or self-care (01) ==
LOC: C.ER 23:07 → INTOOBSV 12-27 02:23 → C.9E 12-27 02:23 → C.3T 12-27 13:48
PROVIDERS: ADMIT Surgery; ATTEND Surgery
DX: K35.80 Unspecified acute appendicitis (principal); K38.1 Appendicular concretions; E11.9 Type 2 diabetes mellitus without complications; K21.9 Gastro-esophageal reflux disease without esophagitis; Z79.84 Long term (current) use of oral hypoglycemic drugs
CPT/HCPCS: 36415; 44970; 74177; 80048; 80053; 81001; 82948; 83690; 85025; 85610; 85730; 87070; 87181; 88304; 93005; 96361; 96365; 96366; 96375; 96376; 99285; C9113; G0378; J1170; J1644; J1885; J2001; J2250; J2370; J2405; J2543; J2704; J2765; J3010; J7040; J7050; J7120; Q9967